=== PATIENT | female | born 1970 | race Two or more races ===

== ENCOUNTER 2025-03-26 00:04 | Emergency (ER) | payer BC, OTHER ==
[~2025-03-26] VITALS: Ht 152.4 cm; Wt 62.9 kg
[2025-03-26 00:18] VITALS: BP 146/78; PULSE 63; RESP 15; TEMP 97.6; O2SAT 98
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
[2025-03-26] MEDS ORDERED: ACET500T58 PO (00:24)
--- NOTE | 2025-03-26 00:53 | DVH ---
CHEST RADIOGRAPH Indication: left upper chest wall pain Technique: Frontal and lateral view of the chest was obtained Comparison: None FINDINGS: Lines and Tubes: None Lungs: Clear Pleura: No effusion. No pneumothorax. Cardiomediastinal contours: Unremarkable Bones: Unremarkable IMPRESSION: 1. No evidence of acute disease.
== END 2025-03-26 01:16 | disposition home or self-care (01) ==
LOC: EEVIPCON 00:04 → ER 00:04
DX: S20.212A Contusion of left front wall of thorax, initial encounter (principal); Z98.890 Other specified postprocedural states; Z79.899 Other long term (current) drug therapy; Y08.89XA Assault by other specified means, initial encounter; Y93.89 Activity, other specified; Y92.89 Other specified places as the place of occurrence of the external cause; Y99.8 Other external cause status
CPT/HCPCS: 71046